=== PATIENT | male | born 1985 | race American Indian/Alaskan Native ===

== ENCOUNTER 2017-07-11 00:59 | Emergency (ER) | payer BC ==
--- NOTE | 2017-07-11 03:30 | Cat Scan Report ---
FINAL REPORT PROCEDURE: CT ABDOMEN PELVIS WO CON TECHNIQUE: Computerized axial tomography of the abdomen and pelvis was performed without intravenous contrast. This study is performed without intravascular contrast material and its sensitivity for abdominal and pelvic pathology, including neoplasms, inflammation, abscess, free fluid, thrombosis, arterial dissection and infarction, is reduced compared with a contrast enhanced study. HISTORY: R flank pain COMPARISON: No prior studies are available for comparison. FINDINGS: Visualized lower thorax: No significant abnormality. Liver: Normal size and attenuation. Spleen: Normal size and attenuation. Gallbladder and biliary system: Normal. Pancreas: Normal. Adrenals: Normal. Kidneys: Both kidneys have normal size. No hydronephrosis. There are few small 1-2 millimeter stones identified in the corticomedullary region of the right kidney.. GI tract: Stomach is normal. The small bowel has a normal appearance. No obstruction, ileus or enteritis. The cecum, appendix region and colon are normal. Moderate fecal debris within the colon is noted.. Lymph nodes and mesentery: Normal. Vasculature: Normal. Bladder: Normal. Reproductive organs: Normal. Peritoneum: No free fluid. Musculoskeletal structures: No significant abnormality. Other: None. IMPRESSION: There is no evidence of intestinal or urinary tract obstruction. No ileus or enteritis. The appendix is not clearly visualized on today's study. The region is normal. No inflammatory process. Moderate fecal debris throughout the colon consistent with constipation. Right renal calculi, no hydronephrosis..
[2017-07-11 05:20] LABS: Bilirubin,Urine NEG (Negative); Blood,Urine SM (Negative); Color,Urine Yellow (Yellow); Mucus,Urine 3+ /HPF; Nitrite,Urine NEG (Negative); Protein,Urine <15 mg/dL mg/dL (Negative)
--- NOTE | 2017-07-11 06:58 | Emergency Department Report ---
ED General Adult HPI - General Chief complaint: Abdominal Pain Stated complaint: SIDE PAIN, CHEST PAIN,SOB Time Seen by Provider: 07/11/17 06:31 Source: patient Mode of arrival: Ambulatory Limitations: No Limitations - History of Present Illness Initial comments: The patient complains of apparent muscle soreness in the right flank area. He mentioned some epigastric discomfort to triage but did not mention that to me. He states that the pain worsens on bending or sitting up in the gurney. According to the triage note he is has a productive cough with yellow sputum. He's denied fever or chills. He has no dyspnea. He has not been coughing since I have been in the emergency department I do not believe. He seems to have a plethora of symptoms. His chief complaint and reason why he is here is right flank pain. -: hour(s) Location: chest, back, abdomen Radiation: non-radiation Quality: aching Consistency: intermittent Improves with: none Worsens with: movement Associated Symptoms: denies other symptoms (except as above listed). denies: nausea/vomiting ( except as above listed), shortness of breath, syncope, weakness - Related Data Previous Rx's Medication Instructions Recorded Last Taken Type HYDROcodone/ACETAMINOPHEN [[place] 1 each PO Q6HR PRN #10 tablet 07/11/17 Unknown Rx 5-325 Tablet] Allergies Allergy/AdvReac Type Severity Reaction Status Date / Time No Known Allergies Allergy Unverified 07/11/17 01:34 ED Review of Systems ROS: Stated complaint: SIDE PAIN, CHEST PAIN,SOB Other details as noted in HPI Constitutional: denies: chills, fever Eyes: denies: eye pain, eye discharge, vision change ENT: denies: ear pain, throat pain Respiratory: cough (educational). denies: shortness of breath, wheezing Cardiovascular: chest pain (made a comment in triage). denies: palpitations Endocrine: no symptoms reported Gastrointestinal: abdominal pain (also commented on this in triage). denies: nausea, diarrhea Genitourinary: denies: urgency, dysuria Musculoskeletal: back pain (chief complaint is right flank pain does not radiate ). denies: joint swelling, arthralgia Skin: denies: rash, lesions Neurological: denies: headache, weakness, paresthesias Psychiatric: denies: anxiety, depression Hematological/Lymphatic: denies: easy bleeding, easy bruising ED Past Medical Hx - Past Medical History Previous Medical History?: No - Surgical History Past Surgical History?: No - Social History Smoking Status: Never Smoker - Medications Home Medications: Home Medications Medication Instructions Recorded Confirmed Last Taken Type HYDROcodone/ACETAMINOPHEN [[place] 1 each PO Q6HR PRN #10 tablet 07/11/17 Unknown Rx 5-325 Tablet] ED Physical Exam - General Limitations: No Limitations General appearance: alert, in no apparent distress - Head Head exam: Present: atraumatic, normocephalic - Eye Eye exam: Present: normal appearance - ENT ENT exam: Present: normal exam, mucous membranes moist - Neck Neck exam: Present: normal inspection. Absent: tenderness, meningismus - Respiratory Respiratory exam: Present: normal lung sounds bilaterally. Absent: respiratory distress - Cardiovascular Cardiovascular Exam: Present: regular rate, normal rhythm. Absent: systolic murmur, diastolic murmur, rubs, gallop - GI/Abdominal GI/Abdominal exam: Present: soft, normal bowel sounds. Absent: distended, tenderness, guarding, rebound, rigid, organomegaly, mass, bruit, pulsatile mass , hernia - Rectal Rectal exam: Present: deferred - Extremities Exam Extremities exam: Present: normal inspection, full ROM. Absent: tenderness, normal capillary refill, pedal edema, joint swelling, calf tenderness - Back Exam Back exam: Present: normal inspection, muscle spasm, paraspinal tenderness ( paravertebral muscle tenderness). Absent: CVA tenderness (R), CVA tenderness (L ), vertebral tenderness, rash noted - Neurological Exam Neurological exam: Present: alert, oriented X3, CN II-XII intact. Absent: motor sensory deficit - Psychiatric Psychiatric exam: Present: normal affect, normal mood - Skin Skin exam: Present: warm, dry, intact, normal color. Absent: rash ED Course Vital Signs 07/11/17 07/11/17 07/11/17 01:25 05:40 05:45 Temperature 98.9 F Pulse Rate 71 83 61 Respiratory 18 17 14 Rate Blood Pressure 114/68 120/53 O2 Sat by Pulse 99 98 99 Oximetry 07/11/17 07/11/17 06:00 06:02 Temperature 99.6 F Pulse Rate 56 L Respiratory 18 Rate Blood Pressure 119/66 O2 Sat by Pulse 99 Oximetry ED Medical Decision Making - Lab Data Laboratory Results - last 24 hr 07/11/17 04:34 Urine Color Yellow Urine Turbidity Clear Urine pH 5.0 Ur Specific [place] 1.032 H Urine Protein <15 mg/dl Urine Glucose (UA) Neg Urine Ketones Neg Urine Blood Sm Urine Nitrite Neg Urine Bilirubin Neg Urine Urobilinogen 2.0 Ur Leukocyte Esterase Neg Urine WBC (Auto) 3.0 Urine RBC (Auto) 3.0 Urine Mucus 3+ - EKG Data -: EKG Interpreted by Me EKG shows normal: sinus rhythm, axis, intervals, QRS complexes, ST-T waves Rate: normal - EKG Data Interpretation: other (some early repolarization noted no ischemic changes) - Radiology Data Radiology results: report reviewed interpreted by me: 1-2 mm nonobstructive stone Critical care attestation.: If time is entered above; I have spent that time in minutes in the direct care of this critically ill patient, excluding procedure time. ED Disposition Clinical Impression: Musculoskeletal back pain, Right nephrolithiasis Disposition: TO HOME OR SELFCARE Is pt being admited?: No Does the pt Need Aspirin: No Condition: Stable Instructions: Kidney Stones (ED), Musculoskeletal Pain (ED) Additional Instructions: You may want to discuss your tiny kidney stones with a urology specialist. However at this point all that is recommended is that he stay well-hydrated. I have given you something for pain. Return any acute change or problems. I've also given a referral to a primary care physician. Prescriptions: HYDROcodone/ACETAMINOPHEN [[place] 5-325 Tablet] 1 each PO Q6HR PRN #10 tablet PRN Reason: Pain Referrals: PRIMARY MD MALDONADO [Primary Care Provider] - 3-5 Days SHILPA BRENNER MD [Staff Physician] - 3-5 Days [facility] [Provider Group] - 3-5 Days Time of Disposition: 07:00
[2017-07-11] MEDS ORDERED: NORCO 5/325 PO ONE (07:02)
[2017-07-11 07:22] VITALS: BP 126/58
== END 2017-07-11 07:22 | disposition home or self-care (01) ==
LOC: ED 00:59
DX: N20.0 Calculus of kidney (principal); R07.9 Chest pain, unspecified
CPT/HCPCS: 74176; 81001; 93005; 93010